=== PATIENT | male | born 1955 | race Hispanic/Latino ===

== ENCOUNTER 2018-02-17 07:32 | Outpatient (CLI) | payer OTHER | END 2018-02-17 07:33 | disposition home or self-care (01) | LOC: BICULT 07:32 | PROVIDERS: ATTEND Internal Medicine Hematology & Oncology | DX: R16.1 Splenomegaly, not elsewhere classified (principal) | CPT/HCPCS: 76705 ==

== ENCOUNTER 2018-03-17 07:50 | Outpatient (CLI) | payer OTHER ==
[2018-03-17 08:39] LABS: Estimated GFR-MDRD - POC Greater than 90
--- NOTE | 2018-03-17 11:00 | MRI ---
MRI OF THE ABDOMEN WITHOUT AND WITH COTNRAST: COMPARISON: Abdominal ultrasound 02/17/18. HISTORY: Abnormal LFTs. Jaundice. Splenomegaly. TECHNIQUE: Multiplanar, multisequence MR images were obtained of the abdomen without and with IV contrast. FINDINGS: The liver and spleen are enlarged. No focal liver lesions are seen. No biliary dilatation is seen. The gallbladder is unremarkable. The kidneys, adrenal glands, and pancreas are unremarkable. No abdominal adenopathy is seen. No abn ormal enhancement is seen on this examination. No marrow signal abnormality is present. IMPRESSION: Hepatosplenomegaly without focal hepatic or biliary abnormality. POS: [facility]
== END 2018-03-17 07:51 | disposition home or self-care (01) ==
LOC: SCSMRI 07:50
PROVIDERS: ATTEND Internal Medicine Gastroenterology
DX: R16.2 Hepatomegaly with splenomegaly, not elsewhere classified (principal)
CPT/HCPCS: 74183; 82565

== ENCOUNTER 2018-04-06 07:22 | Day surgery (SDC) | payer OTHER ==
[2018-04-03 14:17] VITALS: BMI 24.7
[2018-04-06 07:51] LABS: INR-International Normal Ratio 1.3; Prothrombin Time 16.2 SEC (12.0-14.7)
[2018-04-06 07:52] LABS: PTT 41.4 SEC (22.9-36.1)
[2018-04-06 08:17] LABS: Hemoglobin 13.9 g/dL (14.0-18.0); Mean Corpuscular HGB CONC 34.9 g/dL (32.0-36.0); Mean Corpuscular Hemoglobin 28.9 pg (27.0-31.0); Mean Corpuscular Volume 82.7 fL (78.0-98.0); Mean Platelet Volume 8.8 fL (7.4-10.4); Platelet Count 69 thou/uL (130-400); RBC Distribution Width 12.2 % (11.5-14.5); Red Blood Cell (RBC) Count 4.83 mill/uL (4.70-6.10); White Blood Cell (WBC) Count 4.5 thou/uL (4.8-10.8)
[2018-04-06 08:19] LABS: Band 5 % (5-11); Lymphocytes 32 % (21-51); MDiff Complete? YES; Monocytes 4 % (0-10); Neutrophil 58 % (42-75); PLT Morphology Comment Appears Decreased; RBC Morphology Normal
[2018-04-06 08:35] VITALS: BP 130/58; TEMP 97.4
[2018-04-06] MEDS ORDERED: Sodium Bicarbonate 2.5 MEQ/5 ML VIAL ONE (10:18)
[2018-04-06] MEDS ORDERED: Lidocaine 1% PF 5 ML VIAL ONE (10:19)
--- NOTE | 2018-04-06 17:15 | ULT ---
SONOGRAPHIC GUIDED RANDOM HEPATIC BIOPSY: HISTORY: Abnormal liver function tests. Chronic liver disease. FINDINGS: After explaining the procedure and answering all questions, IV platelets were administered as ordered by Dr. Romo. Sterile technique, buffered local anesthesia, sonographic guidance, and an anterior subxiphoid approa ch were used to carefully advance a 17 gauge trocar needle into the left liver lobe. Position was co nfirmed with sonography. A total of two 18 gauge core biopsy specimens were obtained and eventually submitted to pathology for evaluation. Post procedure imaging shows no evidence of complication afte r needle removal. The patient tolerated the procedure well and was monitored in the holding area joshua or to discharge. IMPRESSION: Technically successful sonographic guided random hepatic biopsy. Pathology is pending. POS: [id number]
== END 2018-04-06 12:55 | disposition home or self-care (01) ==
LOC: ULT 07:22
PROVIDERS: ATTEND Internal Medicine Gastroenterology
PROC: 0FB23ZX Excision of Left Lobe Liver, Percutaneous Approach, Diagnostic (ICD-10-PCS; principal; 2018-04-06)
DX: K75.81 Nonalcoholic steatohepatitis (NASH) (principal); E11.9 Type 2 diabetes mellitus without complications; I10 Essential (primary) hypertension; E78.00 Pure hypercholesterolemia, unspecified; D69.6 Thrombocytopenia, unspecified
CPT/HCPCS: 36415; 36430; 47000; 76942; 85025; 85610; 85730; 86850; 86900; 86901; 88307; 88313; 88321; J2001; P9035

== ENCOUNTER 2018-09-04 07:28 | Outpatient (CLI) | payer OTHER ==
--- NOTE | 2018-09-04 08:34 | ULT ---
HEPATIC SONOGRAM WITH DUPLEX EVALUATION: HISTORY: Splenomegaly. FINDINGS: Gallbladder has a normal appearance without evidence of stones. The common duct is 0.3 cm. The live r is unremarkable without focal mass or intrahepatic biliary dilatation. No free fluid. The spleen measures up to 16.1 cm. No focal abnormalities. Good color and spectral Doppler flow within the hepatic and splenic arteries. Portal venous flow is towards the liver. Hepatic venous flow is towards the IVC. HISTORY: Moderate splenomegaly. Cause is not apparent. No significant biliary or hepatic abnormalities are demonstrated. POS: [facility]
== END 2018-09-04 07:29 | disposition home or self-care (01) ==
LOC: BICULT 07:28
PROVIDERS: ATTEND Internal Medicine Gastroenterology
DX: R16.1 Splenomegaly, not elsewhere classified (principal)
CPT/HCPCS: 76705